=== PATIENT | female | born 1985 | race Caucasian/White ===

== ENCOUNTER 2025-05-14 22:55 | Emergency (ER) | payer OTHER, SELFPAY ==
[2025-05-14 22:57] VITALS: BP 130/83
[2025-05-15 00:41] LABS: Hematocrit 25.0 % (37.0-47.0); Hemoglobin 7.1 g/dL (12.0-16.0); Mean Corp Hgb Conc. 28.4 g/dL (33.0-37.0); Mean Corpuscular Volume 66.7 fL (81.0-99.0); Nucleated Red Blood Cells % 0 %; Platelet Count 422 10^3/uL (130-400); Red Cell Dist. Width 18.4 % (11.5-14.5)
[2025-05-15 01:03] LABS: ALT (SGPT) 14 U/L (0-35); AST (SGOT) 18 U/L (14-36); Albumin 4.6 g/dl (3.5-5.0); Alkaline Phosphatase 32 U/L (38-126); Blood Urea Nitrogen 14 mg/dl (7-17); Calcium 9.2 mg/dl (8.4-10.2); Carbon Dioxide 29 mmol/L (22-30); Chloride 105 mmol/L (98-107); Glucose 76 mg/dl (70-99); Potassium 4.0 mmol/L (3.5-5.1); Sodium 138 mmol/L (135-145); Total Protein 7.5 g/dl (6.3-8.2); eGFR > 60.00
[2025-05-15 01:23] LABS: Urine Character Clear (Clear)
--- NOTE | 2025-05-15 01:28 | ED.GENMED ---
History of Present Illness
General
Chief Complaint: Urinary Symptoms
Time Seen by Provider: 05/15/25 00:38
History of Present Illness
History of Present Illness:
39-year-old female history of heavy periods presenting with dysuria, intermittently cloudy urine for the past 1.5 months. Patient states that she feels like her lymph nodes are swollen in her groin. Patient reports bilateral axillary pain but
never felt any lymph nodes. Patient denies fever or chills. Patient states that she typically has heavy periods, states that she can go through an entire box of ultra tampons with period. States that her period last from anywhere from 3 to 25
days. Patient states that she just finished her period a few days ago. Patient reports white vaginal discharge. Patient states that she is taking multiple [id number] medications to help with discomfort with no relief. Patient states that
she is sexually active.
Past History
Past History
ED Past Medical History: Other (Panic attacks)
ED Past Surgical History: Tonsilectomy
Social History
Tobacco: Smoker
Alcohol: Occasional
Personal: Single
Living: with family
Employment: Employed
Family History
Family History: Unable to obtain
Phy Exam
Physical Exam
Physical Exam:
General: Alert, no acute distress
Head: NCAT
Eyes: clear conjunctiva
Neck: supple
Cardiac: regular rate and rhythm, no murmur
Lungs: clear to auscultation bilaterally. No wheezes, rales, or rhonchi. Speaking full unlabored sentences. No respiratory distress.
Abdomen: soft, nondistended nontender. No rebound or guarding. No CVA tenderness bilaterally
MSK: no lower extremity edema bilaterally. No deformity
Skin: warm, dry
Neuro: Alert and oriented x3. no focal deficits
Pelvic: No vaginal bleeding. Thin white discharge. No lesions, rash, or erythema externally
Course
Orders/Labs/Results
Orders:
Orders
05/15/25 00:25
Complete Blood Count/With Diff Urgent
Comprehensive Metabolic Panel Urgent
05/15/25 01:08
Urinalysis Reflex To Culture Urgent
Date Specimen was Collected: 05/15/25
Time Specimen was Collected: 00:20
05/15/25 01:27
Hilary/Yeast Culture Urgent
ADIS Source: Vagina
Specimen Description:
Date Specimen was Collected: 05/15/25
Time Specimen was Collected: 01:23
Chlamydia/GC by PCR Urgent
[facility] Source: Vagina
Specimen Description:
Source:: VAGINA
Date Specimen was Collected: 05/15/25
Time Specimen was Collected: :23
Abnormal Lab Results
05/15/25
00:25
WBC 4.2 L 10^3/uL
(4.8-10.8)
RBC 3.75 L 10^6/uL
(4.20-5.40)
Hgb 7.1 L g/dL
(12.0-16.0)
Hct 25.0 L %
(37.0-47.0)
MCV 66.7 L fL
(81.0-99.0)
MCH 18.9 L pg
(27.0-31.0)
MCHC 28.4 L g/dL
(33.0-37.0)
RDW 18.4 H %
(11.5-14.5)
Plt Count 422 H 10^3/uL
(130-400)
Neutrophils % 33.3 L %
(42.2-75.2)
Monocytes % 12.2 H %
(1.7-9.3)
Alkaline Phosphatase 32 L U/L
(38-126)
05/15/25 00:25
05/15/25 00:25
Vital Signs
Initial and Last Documented VS:
Initial Vital Signs
Temp Pulse Resp BP Pulse Ox
98.6 F 105 16 130/83 100
05/14/25 22:57 05/14/25 22:57 05/14/25 22:57 05/14/25 22:57 05/14/25 22:57
Last Documented Vital Signs
Temp Pulse Resp BP Pulse Ox
98.6 F 80 18 106/63 100
05/14/25 22:57 05/15/25 02:07 05/15/25 02:07 05/15/25 02:07 05/15/25 02:07
MDM/Problems Addressed
Differential Diagnosis Includes:
UTI, gonorrhea/chlamydia, yeast infection
MDM/Problems Addressed:
Results reviewed. Significant for hemoglobin 7.1. Patient reports history of iron deficiency anemia and heavy periods. Patient denies any black/bloody stools. Recommended follow-up with hematology/[facility]
UA negative for UTI
Discused results with patient at bedside. Stable for discharge home with hematology/[facility] follow up
*Pulse Oximetry
SaO2: 100
Oxygen Mode of Delivery: Room air
Patient hypoxic: no
*Critical Care Note
Total Time (30-74mins, 75-104mins- exclusive of procedures): Not Applicable
ED Attending Note
-
Portions of this chart may have been created with voice recognition software.� Occasional wrong word or��sound alike� substitutions may have occurred due to the inherent limitations of voice recognition software.
Discharge Plan
Departure
Patient Disposition: Home (Routine Discharge)
Date of Disposition: 05/15/25
Time of Disposition: 02:34
Patient with high blood pressure during this ER visit?: Yes
Discharge Problem:
Anemia
Prescriptions:
No Action
Celexa
Referrals:
[facility] [Provider Group]
[facility] [Outside]
Tulio Andrea, DO [Active, Hematology / Oncology]
Tashia Ricardo MD [Active, Gynecology]
UNKNOWN - PT DOES,NOT KNOW [Family Provider]
Activity Restrictions/Additional Instructions:
Follow-up with [facility] and hematology concerning low hemoglobin. Follow-up with primary care doctor in 1 to 2 days
Return to the emergency department for dizziness, shortness of breath or new/worsening symptom
Interventions
Interventions:
*Risk Screen - Suicide Last Done: 05/14/25 22:57
*General Assessment Last Done: 05/14/25 22:57
*Neglect/Abuse Screening Last Done: 05/14/25 22:57
*Nursing Disposition Last Done: 05/15/25 02:41
ED-Female Genitourinary Assessment Last Done: 05/15/25 00:29
Discharge Date and Time
Discharge Date/Time: 05/15/25 02:41
Print Language: NAURUAN
[2025-05-15 02:07] VITALS: BP 106/63
== END 2025-05-15 02:41 | disposition home or self-care (01) ==
LOC: EMR 22:55
PROVIDERS: Student in an Organized Health Care Education/Training Program; EMERGENCY PHYSICIAN Emergency Medicine
DX: D64.9 Anemia, unspecified (principal); R30.0 Dysuria; F41.0 Panic disorder [episodic paroxysmal anxiety]; F17.200 Nicotine dependence, unspecified, uncomplicated
CPT/HCPCS: 99283; 80053; 81003; 85025; 87102; 87491; 87591